=== PATIENT | male | born 1990 | race Caucasian/White ===

== ENCOUNTER 2020-01-21 11:25 | Emergency (ER) | payer MEDICAID ==
[~2020-01-21] VITALS: Ht 180.3 cm; Wt 70.3 kg
[2020-01-21 11:36] VITALS: BP 113/66
--- NOTE | 2020-01-21 11:39 | NUR ---
PT AMBULATED TO ER BED 1
--- NOTE | 2020-01-21 11:59 | NUR ---
COUGH, CONGESTION, BODY ACHES UNRELEIVIED WITH OTC COLD MEDICATION . PT AWAKE , ALERT ,AFIBRILE .SCE , CLEAR BS BLF . PMHX-- NONE NKDA
--- NOTE | 2020-01-21 13:15 | NUR ---
[A CARY AT BEDSIDE EVALUATING PATIENT.
[2020-01-21] MEDS ORDERED: ONDANSETRON 4 MG ODT PO ONE (13:20)
--- NOTE | 2020-01-21 14:20 | NUR ---
Patient discharged with v/s stable. Written and verbal after care instructions given and explained regarding viral syndrome. Patient alert, oriented and verbalized understanding of instructions. Ambulatory with steady gait. All questions addressed prior to discharge. ID band removed. Patient advised to follow up with PMD. Rx of ibuprofen, promethazine,tamiflu given. Patient educated on indication of medication including possible reaction and side effects. Opportunity to ask questions provided and answered.
[2020-01-21 14:23] VITALS: BP 115/70
== END 2020-01-21 14:20 | disposition home or self-care (01) ==
LOC: MED 11:25
DX: B34.9 Viral infection, unspecified (principal)
CPT/HCPCS: 71045; 99283; Q0092; Q0162

== ENCOUNTER 2021-01-13 19:23 | Emergency (ER) | payer MEDICAID ==
[~2021-01-13] VITALS: Ht 180.3 cm; Wt 74.8 kg
[2021-01-13 19:25] VITALS: BP 120/65
--- NOTE | 2021-01-13 19:25 | NUR ---
TO BED AMBULATORY
--- NOTE | 2021-01-13 19:40 | NUR ---
RECEIVED PT IN PBED 4, W/ C/O LEFT ANKLE PAIN, 05/28. S/P FALL YESTERDAY WHILE PLAYING BASKETBALL, PT STATES HE FELL AND ROLLED HIS LEFT ANKLE, LEFT ANKLE SWOLLEN W/ DECREASED ROM. PT VERBALIZED "I PLAYED FOR ANOTHER HOUR."
--- NOTE | 2021-01-13 19:40 | NUR ---
Dr. Jordan examining patient.
--- NOTE | 2021-01-13 19:41 | NUR ---
X-Ray at bedside.
--- NOTE | 2021-01-13 19:43 | NUR ---
DR. PETTY WENT IN TO SEE THE PATIENT.
--- NOTE | 2021-01-13 19:58 | NUR ---
Dr. Jordan examining patient.
[2021-01-13] MEDS ORDERED: KETOROLAC 60 MG/2 ML VIAL IM ONE (20:00)
[2021-01-13] MEDS ORDERED: ACET-9527 PO (20:10)
[2021-01-13] MEDS ORDERED: IBUP-2213 PO (20:10)
--- NOTE | 2021-01-13 20:31 | NUR ---
PAIN MED GIVEN ORDERED, TOLERATED WELL.
[2021-01-13 20:53] VITALS: BP 120/65
--- NOTE | 2021-01-13 20:57 | NUR ---
Patient discharged with v/s stable. Written and verbal after care instructions given and explained. Patient alert, oriented and verbalized understanding of instructions. Ambulatory with steady gait. All questions addressed prior to discharge. ID band removed. Patient advised to follow up with PMD. Rx of NORCO, IBUPROFEN given. Patient educated on indication of medication including possible reaction and side effects. Opportunity to ask questions provided and answered. PT VERBALIZED DECREASED PAIN TO 3/10. PT IS WAITING FOR HER SISTER TO PICK HIM UP.
== END 2021-01-13 20:57 | disposition home or self-care (01) ==
LOC: MED 19:23
DX: S90.32XA Contusion of left foot, initial encounter (principal); W21.09XA Struck by other hit or thrown ball, initial encounter; Y93.89 Activity, other specified; Y92.89 Other specified places as the place of occurrence of the external cause; Y99.8 Other external cause status
CPT/HCPCS: 73610; 73630; 96372; 99284; J1885

== ENCOUNTER 2021-02-11 19:37 | Emergency (ER) | payer MEDICAID ==
[~2021-02-11] VITALS: Ht 180.3 cm; Wt 75.7 kg
[~2021-02-11 19:37] MED LIST: ACET-9527 PO; IBUP-2213 PO
[2021-02-11 19:49] VITALS: BP 111/59
--- NOTE | 2021-02-11 20:12 | NUR ---
PT AMB TO LOBBY TO AWAIT FOR A BED
--- NOTE | 2021-02-11 20:18 | NUR ---
PT SEEN AND EVALUATED BY ERMD IN TRIAGE.
[2021-02-11] MEDS ORDERED: diazePAM 5 MG TAB PO ONE (20:20)
[2021-02-11] MEDS ORDERED: KETOROLAC 30 MG/ML VIAL IM ONE (20:20)
--- NOTE | 2021-02-11 20:24 | NUR ---
PT TAKEN TO XRAY VIA W/C
[2021-02-11 20:50] VITALS: BP 111/59
--- NOTE | 2021-02-11 20:50 | NUR ---
SEE COMPLETE ASSESSMENT
[2021-02-11] MEDS ORDERED: IBUP-2213 PO (20:58)
[2021-02-11] MEDS ORDERED: METH750T5 PO (20:58)
--- NOTE | 2021-02-11 21:03 | NUR ---
Patient discharged with v/s stable. Written and verbal after care instructions given and explained. Patient alert, oriented and verbalized understanding of instructions. Ambulatory with steady gait. All questions addressed prior to discharge. ID band removed. Patient advised to follow up with PMD. Rx of ROBAXIN AND MOTRIN given. Patient educated on indication of medication including possible reaction and side effects. Opportunity to ask questions provided and answered.
== END 2021-02-11 21:03 | disposition home or self-care (01) ==
LOC: MED 19:37
DX: S39.012A Strain of muscle, fascia and tendon of lower back, initial encounter (principal); M54.30 Sciatica, unspecified side; X50.0XXA Overexertion from strenuous movement or load, initial encounter; Y93.89 Activity, other specified; Y92.89 Other specified places as the place of occurrence of the external cause; Y99.8 Other external cause status
CPT/HCPCS: 72110; 96372; 99283; J1885

== ENCOUNTER 2021-04-18 23:13 | Emergency (ER) | payer MEDICAID ==
[~2021-04-18] VITALS: Ht 180.3 cm; Wt 77.1 kg
[~2021-04-18 23:13] MED LIST changes: +METH750T5 PO
[2021-04-18 23:16] VITALS: BP 119/74
[2021-04-19 01:12] VITALS: BP 119/74
== END 2021-04-19 01:12 | disposition home or self-care (01) ==
LOC: MED 23:13
DX: L70.0 Acne vulgaris (principal); F14.90 Cocaine use, unspecified, uncomplicated; Z79.899 Other long term (current) drug therapy
CPT/HCPCS: 99281; 99284

== ENCOUNTER 2024-05-14 21:01 | Emergency (ER) | payer BC, MEDICAID ==
[~2024-05-14] VITALS: Ht 182.9 cm; Wt 80.7 kg
[2024-05-14 21:30] VITALS: BP 150/90; PULSE 83; RESP 18; TEMP 98.2; O2SAT 99
[2024-05-14 22:33] LABS: FLU A ANTIGEN negative (NEGATIVE); FLU B ANTIGEN NEGATIVE (NEGATIVE)
[2024-05-14] MEDS ORDERED: NAPR-337 PO (23:57)
== END 2024-05-15 00:09 | disposition home or self-care (01) ==
LOC: MED 21:01
DX: J06.9 Acute upper respiratory infection, unspecified (principal); Z20.822 Contact with and (suspected) exposure to COVID-19; Z79.899 Other long term (current) drug therapy
CPT/HCPCS: 71045; 99284